=== PATIENT | female | born 2000 ===

== ENCOUNTER 2023-10-06 11:26 | Emergency (ER) | payer BC ==
[2023-10-06] MEDS: Diphtheria,Pertussis(Acell),Tetanus Vaccine 0.5 ML Syringe IM ONE (12:10)
[2023-10-06] MEDS: Lidocaine 1% 30 ML SDV INJECT ONE (12:12)
[2023-10-06] MEDS: Bacitracin Oint 1 GM U/D Packet TOP ONE (12:44)
== END 2023-10-06 12:09 | disposition home or self-care (01) ==
LOC: DL.ED 11:26
DX: S01.81XA Laceration without foreign body of other part of head, initial encounter (principal); Z23 Encounter for immunization; J45.909 Unspecified asthma, uncomplicated; W54.0XXA Bitten by dog, initial encounter
CPT/HCPCS: 12011; 90471; 90715; 99282; A9270; J3490